=== PATIENT | female | born 1945 | race Caucasian/White ===

== ENCOUNTER → 2018-02-09 | Emergency (ER) | payer OTHER ==
[~2018-02-09] VITALS: Ht 154.9 cm; Wt 46.3 kg
[~2018-02-09] MED LIST: ALENDRONATE SOD70 MG PO; AMIODARONE HCL200 MG PO; ATORVASTATIN CA20 MG PO; CARTIA XT240 MG PO; CEFADROXIL1 G PO; FOLIC ACID0.4 MG PO; LASIX20 MG PO; LIPITOR20 MG PO; LISINOPRIL20 MG PO; NORVASC5 MG PO; VASOTEC20 MG; XARELTO15 MG PO; XOPENEX0.63 MG/3 IH; ZOLPIDEM TARTRA10 MG PO
== END | disposition left against medical advice (07) ==
LOC: ER 13:21
DX: Z53.20 Procedure and treatment not carried out because of patient's decision for unspecified reasons (principal)

== ENCOUNTER 2020-03-19 18:49 | Inpatient (IN) | payer OTHER ==
[~2020-03-19] VITALS: Ht 152.4 cm; Wt 44.5 kg
[2020-03-19] MEDS ORDERED: FERRETTS325 MG (19:30)
[2020-03-19] MEDS ORDERED: CARVEDILOL 25 MG (19:31)
[2020-03-19] MEDS ORDERED: HYDROCHLOROTH12.5 MG (19:32)
[2020-03-19] MEDS ORDERED: FOLIC ACID1 MG (19:33)
[2020-03-19] MEDS ORDERED: ELIQUIS5 MG (19:33)
[2020-03-19] MEDS ORDERED: ZESTRIL20 MG (19:34)
== END 2020-03-27 11:09 | disposition home or self-care (01) | DRG 812 ==
LOC: ER 18:49 → SURH 03-20 11:19
PROVIDERS: ADMIT Internal Medicine; ATTEND Internal Medicine
PROC: CB2YYZZ Tomographic (Tomo) Nuclear Medicine Imaging of Respiratory System using Other Radionuclide (ICD-10-PCS; principal; 2020-03-20)
PROC: 30233N1 Transfusion of Nonautologous Red Blood Cells into Peripheral Vein, Percutaneous Approach (ICD-10-PCS; 2020-03-20)
PROC: 4A033R1 Measurement of Arterial Saturation, Peripheral, Percutaneous Approach (ICD-10-PCS; 2020-03-20)
DX: D64.89 Other specified anemias (principal); I13.0 Hypertensive heart and chronic kidney disease with heart failure and stage 1 through stage 4 chronic kidney disease, or unspecified chronic kidney disease; N18.9 Chronic kidney disease, unspecified; E86.0 Dehydration; Z20.828 Contact with and (suspected) exposure to other viral communicable diseases; R13.19 Other dysphagia; R09.02 Hypoxemia; I48.91 Unspecified atrial fibrillation; I50.9 Heart failure, unspecified; J43.2 Centrilobular emphysema; N28.1 Cyst of kidney, acquired; Z85.3 Personal history of malignant neoplasm of breast